=== PATIENT | female | born 1960 | race Caucasian/White ===

== ENCOUNTER → 2017-03-22 | Outpatient (CLI) | payer MEDICAID ==
--- NOTE | 2017-03-22 08:01 | XR ---
EXAMINATION TYPE: XR chest 2V DATE OF EXAM: 03/22/2017 7:26 AM COMPARISON: None HISTORY: 56-year-old female with cough and congestion TECHNIQUE: Frontal and lateral views FINDINGS: The cardiomediastinal silhouette, aorta, and pulmonary vasculature are within normal limits. Strandy atelectasis in the lower lungs. No consolidation or pleural effusion. IMPRESSION: Stranding bibasilar areas of atelectasis. Otherwise, no acute process seen.
== END | disposition home or self-care (01) ==
LOC: RADXRMAIN 07:12
PROVIDERS: ATTEND Family Medicine
DX: J98.11 Atelectasis (principal)
CPT/HCPCS: 71020

== ENCOUNTER → 2017-06-06 | Outpatient (CLI) | payer MEDICAID ==
[2017-06-06 11:13] LABS: Basophils % (A) 1 %; CH 31.8; CHCM 34.3; Eosinophils # (A) 0.1 k/uL (0-0.7); Eosinophils % (A) 2 %; HDW 2.04; Luc # (Auto) 0.29; Luc % (Auto) 3; Lymphocytes # (A) 2.7 k/uL (1.0-4.8); Lymphocytes % (A) 31 %; MCH 31.9 pg (25.0-35.0); MCHC 34.2 g/dL (31.0-37.0); MCV 93.2 fL (80.0-100.0); Mean Platelet Volume 6.8; Monocytes # (A) 0.5 k/uL (0-1.0); Monocytes % (A) 6 %; Neutrophils % (A) 57 %; RBC 4.39 m/uL (3.80-5.40); RDW 13.7 % (11.5-15.5); WBC 8.7 k/uL (3.8-10.6); WBC (Perox) 7.88
[2017-06-06 11:33] LABS: ALT 36 U/L (9-52); AST 31 U/L (14-36); Alkaline Phosphatase 92 U/L (38-126); Anion Gap 10 mmol/L; Blood Urea Nitrogen 14 mg/dL (7-17); Calcium 10.3 mg/dL (8.4-10.2); Carbon Dioxide 27 mmol/L (22-30); Chloride 92 mmol/L (98-107); Cholesterol 173 mg/dL (<200); Creatine Kinase 74 U/L (30-135); Glucose 102 mg/dL (74-99); HDL Cholesterol 64 mg/dL (40-60); Non-African American GFR(MDRD) >60 (>60 ml/min/1.73 sqM); Potassium 4.7 mmol/L (3.5-5.1); Sodium 129 mmol/L (137-145); Total Bilirubin 0.8 mg/dL (0.2-1.3); Triglycerides 91 mg/dL (<150)
[2017-06-06 13:58] LABS: Hemoglobin A1C 5.9 % (4.2-6.1)
== END | disposition home or self-care (01) ==
LOC: LABWHC1 10:48
PROVIDERS: ATTEND Family Medicine
DX: E11.65 Type 2 diabetes mellitus with hyperglycemia (principal); Z78.0 Asymptomatic menopausal state
CPT/HCPCS: 36415; 80053; 80061; 82550; 83036; 84439; 84443; 85025

== ENCOUNTER → 2018-01-17 | Outpatient (CLI) | payer MEDICAID ==
[2018-01-17 08:43] LABS: Basophils % (A) 1 %; Eosinophils # (A) 0.2 k/uL (0-0.7); Eosinophils % (A) 2 %; HCT 44.9 % (34.0-46.0); HGB 14.2 gm/dL (11.4-16.0); Lymphocytes # (A) 2.2 k/uL (1.0-4.8); Lymphocytes % (A) 26 %; MCH 30.8 pg (25.0-35.0); MCHC 31.8 g/dL (31.0-37.0); MCV 97.1 fL (80.0-100.0); Mean Platelet Volume 6.6; Monocytes # (A) 0.5 k/uL (0-1.0); Monocytes % (A) 6 %; Neutrophils # (A) 5.3 k/uL (1.3-7.7); Neutrophils % (A) 63 %; Platelet Count 330 k/uL (150-450); RBC 4.62 m/uL (3.80-5.40); RDW 13.4 % (11.5-15.5); WBC 8.4 k/uL (3.8-10.6)
[2018-01-17 09:12] LABS: ALT 37 U/L (9-52); AST 33 U/L (14-36); Albumin 4.3 g/dL (3.5-5.0); Alkaline Phosphatase 90 U/L (38-126); Anion Gap 13 mmol/L; Blood Urea Nitrogen 13 mg/dL (7-17); Calcium 10.2 mg/dL (8.4-10.2); Carbon Dioxide 29 mmol/L (22-30); Chloride 93 mmol/L (98-107); Cholesterol 185 mg/dL (<200); Glucose 104 mg/dL (74-99); HDL Cholesterol 58 mg/dL (40-60); LDL Cholesterol,Calculated 110 mg/dL (0-99); Potassium 4.6 mmol/L (3.5-5.1); Sodium 135 mmol/L (137-145); Total Bilirubin 0.5 mg/dL (0.2-1.3); Total Protein 7.7 g/dL (6.3-8.2); Triglycerides 86 mg/dL (<150)
[2018-01-17 20:31] LABS: Hemoglobin A1C 5.9 % (4.0-6.0)
== END | disposition home or self-care (01) ==
LOC: LABWHC1 08:12
PROVIDERS: ATTEND Family Medicine
DX: E11.9 Type 2 diabetes mellitus without complications (principal); E78.5 Hyperlipidemia, unspecified; I10 Essential (primary) hypertension
CPT/HCPCS: 36415; 80053; 80061; 82043; 82570; 83036; 85025

== ENCOUNTER → 2018-05-15 | Outpatient (CLI) | payer MEDICAID ==
[2018-05-15 10:44] LABS: Anion Gap 12 mmol/L; Blood Urea Nitrogen 14 mg/dL (7-17); Calcium 10.1 mg/dL (8.4-10.2); Carbon Dioxide 29 mmol/L (22-30); Chloride 96 mmol/L (98-107); Glucose 98 mg/dL (74-99); Potassium 4.5 mmol/L (3.5-5.1); Sodium 137 mmol/L (137-145)
[2018-05-15 17:29] LABS: Hemoglobin A1C 5.9 % (4.0-6.0)
== END | disposition home or self-care (01) ==
LOC: LABWHC1 10:02
PROVIDERS: ATTEND Family Medicine
DX: E11.9 Type 2 diabetes mellitus without complications (principal)
CPT/HCPCS: 36415; 80048; 83036

== ENCOUNTER → 2018-09-03 | Outpatient (CLI) | payer MEDICAID ==
[2018-09-03 12:23] LABS: Anion Gap 10 mmol/L; Blood Urea Nitrogen 15 mg/dL (7-17); Calcium 10.2 mg/dL (8.4-10.2); Carbon Dioxide 30 mmol/L (22-30); Chloride 95 mmol/L (98-107); Glucose 92 mg/dL (74-99); Potassium 4.6 mmol/L (3.5-5.1); Sodium 135 mmol/L (137-145)
[2018-09-03 19:14] LABS: Hemoglobin A1C 5.7 % (4.0-6.0)
== END | disposition home or self-care (01) ==
LOC: LABWHC1 10:26
PROVIDERS: ATTEND Family Medicine
DX: E11.9 Type 2 diabetes mellitus without complications (principal)
CPT/HCPCS: 36415; 80048; 83036

== ENCOUNTER → 2018-11-21 | Day surgery (SDC) | payer MEDICAID ==
[2018-11-19 08:42] VITALS: BMI 38.9
[~2018-11-21] MED LIST: LACTATED RINGERS 1,000 ML IV ONE; LACTATED RINGERS 1,000 ML IV SCH; LIDOCAINE 1% INJ 10MG/ML (20 ML MDV) ONE; PROPOFOL 10 MG/ML 20 ML VIAL IV ONE
--- NOTE | 2018-11-21 05:04 | P.GSHP ---
History of Present Illness H&P Date: 11/21/18 CHIEF COMPLAINT: GERD and colon screen HISTORY OF PRESENT ILLNESS: The patient is a 58-year-old female who presents with gastroesophageal reflux disease and need for colon screen. Upper and lower endoscopy were offered for further evaluation and management. PAST MEDICAL HISTORY: Please see list. PAST SURGICAL HISTORY: Please see list. MEDICATIONS: Please see list. ALLERGIES: Please see list. SOCIAL HISTORY: No illicit drug use FAMILY HISTORY: No reports of Crohn disease or ulcerative colitis. REVIEW OF ORGAN SYSTEMS: CONSTITUTIONAL: No reports of fevers or chills. GI: Denies any blood in stools or constipation. PHYSICAL EXAM: VITAL SIGNS: Stable GENERAL: Well-developed pleasant in no acute distress. HEENT: No scleral icterus. Extraocular movements grossly intact. Moist buccal mucosa. NECK: Supple without lymphadenopathy. CHEST: Unlabored respirations. Equal bilateral excursions. CARDIOVASCULAR: Regular rate and rhythm. Distal 2+ pulses. ABDOMEN: Soft, nondistended. MUSCULOSKELETAL: No clubbing, cyanosis, or edema. ASSESSMENT: 1. Gastroesophageal reflux disease 2. Colon screen. PLAN: 1. Recommend proceeding with an upper and lower endoscopy Past Medical History Past Medical History: Diabetes Mellitus, GI Bleed, Hypertension Additional Past Medical History / Comment(s): HX OF BLEEDING STOMACH ULCER, POLYPS, DIVERTICULITIS., DIET CONTROLLED DIABETES. History of Any Multi-Drug Resistant Organisms: None Reported Past Surgical History: Tubal Ligation Past Anesthesia/Blood Transfusion Reactions: No Reported Reaction Past Psychological History: No Psychological Hx Reported Smoking Status: Current every day smoker Past Alcohol Use History: Occasional Additional Past Alcohol Use History / Comment(s): smokes 1/2ppd. started smoking as teenager- smoking for approx 42 years. Past Drug Use History: None Reported - Past Family History Mother Family Medical History: No Reported History Medications and Allergies Home Medications Medication Instructions Recorded Confirmed Type Atorvastatin [Lipitor] 40 mg PO HS 05/13/14 11/19/18 History Hydrochlorothiazide [Hydrodiuril] 25 mg PO DAILY 05/13/14 11/19/18 History Lisinopril 30 mg PO BID 05/13/14 11/19/18 History Metoprolol Succinate [Toprol XL] 50 mg PO DAILY 05/13/14 11/19/18 History Omeprazole [PriLOSEC] [facility] 02/11/15 11/19/18 Rx Multivitamins, Thera [Multivitamin] 1 tab PO DAILY 08/15/16 11/19/18 History Allergies Allergy/AdvReac Type Severity Reaction Status Date / Time No Known Allergies Allergy Verified 11/19/18 08:24
[2018-11-21 07:12] VITALS: TEMP 98.1
[2018-11-21 07:18] LABS: Glucose,Whole Blood 106 mg/dL (75-99)
--- NOTE | 2018-11-21 07:42 | P.PCN ---
Date of Procedure: 11/21/18 Description of Procedure: PREOPERATIVE DIAGNOSIS: Gastroesophageal reflux disease. History of Díaz's esophagus POSTOPERATIVE DIAGNOSIS: Gastroesophageal reflux disease. History of Díaz's esophagus OPERATION: Esophagogastroduodenoscopy with biopsies along the distal esophagus SURGEON: Jaqueline Stringer MD ANESTHESIA: MAC. INDICATIONS: The patient is a 58-year-old female with history of Díaz's esophagus. Benefits and risks of the procedure were described. Informed consent was obtained. DESCRIPTION: The patient was brought into the endoscopy suite and laid in the left lateral decubitus position. An Olympus gastroscope was passed along the posterior oropharynx down to the distal esophagus where the squamocolumnar junction was encountered at 40 cm from the incisors. The stomach was entered and no bile reflux was found. Additional findings are listed below. Biopsies with cold forceps were obtained of the antrum. The first through third portion of the duodenum was examined and unremarkable. Retroflexion of the scope confirmed Hill grade 2 lower esophageal valve. The squamocolumnar junction demonstrated LA grade B erosive esophagitis. The stomach was desufflated. The patient tolerated the procedure well. FINDINGS: Squamocolumnar junction 40 cm from the incisors. Diaphragmatic hiatus at 40 cm. Hill grade 2 lower esophageal valve. LA grade B erosive esophagitis. No active duodenitis. No active gastritis Moderate improvement of previous Díaz's esophagus with biopsies obtained of the distal esophagus RECOMMENDATIONS: Upper endoscopy in 3 years, 2020
--- NOTE | 2018-11-21 08:01 | P.PCN ---
Date of Procedure: 11/21/18 Description of Procedure: PREOPERATIVE DIAGNOSIS: Personal history of colon polyps. Family history of high-risk colon polyps POSTOPERATIVE DIAGNOSIS: Personal history of colon polyps. Family history of high-risk colon polyps Multiple tubular adenomas throughout the colon. Sigmoid diverticulosis. OPERATION: Colonoscopy to the ileocecal valve and appendiceal orifice. Colonoscopy with multiple hot snare polypectomies Colonoscopy with ablation at distal ascending colon of polyp SURGEON: Jaqueline Stringer MD. ANESTHESIA: MAC. INDICATIONS: The patient is a 58-year-old female who presents for colonoscopy surveillance due to multiple high-risk colon polyps. Last colonoscopy within 5 years. Benefits and risks were described and informed consent was obtained. DESCRIPTION OF PROCEDURE: The patient had undergone Gatorade, MiraLAX and Dulcolax prep. She had been brought into the operating room and laid in the left lateral decubitus position. After adequate intravenous sedation, the rectum was examined with 2% lidocaine jelly. External hemorrhoids were encountered. The rectal tone was within normal limits. No lesions were palpated in the rectal vault. An Olympus colonoscope was advanced until the ileocecal valve and appendiceal orifice were clearly viewed. The prep was fair with visualization of the mucosal folds. The scope was removed with visualization of each mucosal fold. Scattered diverticulosis was encountered. Multiple colonic polyps were found and snare polypectomy. Focal colitis was found from diverticulosis at sigmoid colon. Retroflexion of the scope demonstrated grade 1 internal hemorrhoids without active bleeding or inflammation. The colon was desufflated. The patient had tolerated the procedure well. Withdrawal time was over 6 minutes. FINDINGS: Internal hemorrhoids, grade 1 External hemorrhoids, grade 2. No arteriovenous malformations. Removal of 2 polyps: - Snare polypectomy ascending colon 2, 5 mm and 4 mm tubulovillous adenoma polyp. Ablation of colon polyp at distal ascending colon Sigmoid diverticulosis with recent diverticulitis RECOMMENDATIONS: Given severity of tubular adenomas, recommend repeat colonoscopy 3 years, 2020. Plan - Discharge Summary New Discharge Prescriptions: No Action Lisinopril 30 mg PO BID Hydrochlorothiazide [Hydrodiuril] 25 mg PO DAILY Metoprolol Succinate [Toprol XL] 50 mg PO DAILY Atorvastatin [Lipitor] 40 mg PO HS Omeprazole [PriLOSEC] 40 mg PO -KT #90 cap Multivitamins, Thera [Multivitamin] 1 tab PO DAILY Discharge Medication List Atorvastatin [Lipitor] 40 mg PO HS 05/13/14 [History] Hydrochlorothiazide [Hydrodiuril] 25 mg PO DAILY 05/13/14 [History] Lisinopril 30 mg PO BID 05/13/14 [History] Metoprolol Succinate [Toprol XL] 50 mg PO DAILY 05/13/14 [History] Omeprazole [PriLOSEC] 40 mg PO -[facility]KFST #90 cap 02/11/15 [Rx] Multivitamins, Thera [Multivitamin] 1 tab PO DAILY 08/15/16 [History] Follow up Appointment(s)/Referral(s): Jaqueline Stringer MD [STAFF PHYSICIAN] - As Needed Patient Instructions/Handouts: Gastroesophageal Reflux Disease (DC) Activity/Diet/Wound Care/Special Instructions: Repeat upper and lower endoscopy, 3 years, 2020 Discharge Disposition: HOME SELF-CARE
[2018-11-21 08:13] VITALS: RESP 18
[2018-11-21 08:25] VITALS: BP 132/82; PULSE 66
== END | disposition home or self-care (01) ==
LOC: ORWHC2ENDO 06:54
PROVIDERS: ATTEND Surgery Plastic and Reconstructive Surgery
DX: Z12.11 Encounter for screening for malignant neoplasm of colon (principal); K29.50 Unspecified chronic gastritis without bleeding; K21.0 Gastro-esophageal reflux disease with esophagitis; K22.10 Ulcer of esophagus without bleeding; Q45.3 Other congenital malformations of pancreas and pancreatic duct; D12.2 Benign neoplasm of ascending colon; K57.30 Diverticulosis of large intestine without perforation or abscess without bleeding; K52.9 Noninfective gastroenteritis and colitis, unspecified; K64.4 Residual hemorrhoidal skin tags; K64.0 First degree hemorrhoids; Z86.010 Personal history of colon polyps; Z87.11 Personal history of peptic ulcer disease; Z87.19 Personal history of other diseases of the digestive system; Z83.71 Family history of colonic polyps; E11.9 Type 2 diabetes mellitus without complications; I10 Essential (primary) hypertension; F17.210 Nicotine dependence, cigarettes, uncomplicated; Z79.899 Other long term (current) drug therapy; Z98.51 Tubal ligation status
CPT/HCPCS: 88305; 45385; 43239; 45388; J2001; J2704

== ENCOUNTER → 2018-11-28 | Outpatient (CLI) | payer MEDICAID ==
--- NOTE | 2018-12-03 08:37 | MM ---
Reason for exam: screening (asymptomatic). Last mammogram was performed 5 years and 5 months ago. History: Patient is postmenopausal. Physical Findings: A clinical breast exam by your physician is recommended on an annual basis and results should be correlated with mammographic findings. MG Screening Mammo w CAD Bilateral CC and MLO view(s) were taken. Prior study comparison: July 09, 2013, bilateral digital screening mammo w/CAD. There are scattered fibroglandular densities. No suspicious abnormality. Stable left medial middle depth asymmetry. No significant changes when compared with prior studies. ASSESSMENT: Benign, BI-RAD 2 RECOMMENDATION: Routine screening mammogram of both breasts in 1 year.
== END | disposition home or self-care (01) ==
LOC: RADMAMWWP 10-17 15:35
PROVIDERS: ATTEND Family Medicine
DX: Z12.31 Encounter for screening mammogram for malignant neoplasm of breast (principal)
CPT/HCPCS: 77067

== ENCOUNTER 2018-12-19 08:16 | Observation (INO) | payer MEDICAID ==
--- NOTE | 2018-12-19 08:32 | ED ---
General Adult HPI - General Chief complaint: Back Pain/Injury Stated complaint: Back pain, Hypertensive Time Seen by Provider: 12/19/18 08:24 Source: patient, RN notes reviewed, old records reviewed Mode of arrival: ambulatory Limitations: no limitations - History of Present Illness Initial comments: 58-year-old female presents for evaluation of left-sided back pain. Pain began at 5 AM when the patient woke. Denies injury. Patient went to work as she normally would, she was having persistent dull ache in her left shoulder and back. She didn't take her blood pressure at work noted to be significantly elevated. She was urged to present to the emergency department for evaluation. Denies nausea vomiting. Denies central chest pain. She does report some mild anterior left-sided upper chest pain. This is also dull and achy. No diaphoresis. No abdominal pain. Patient has history of hypertension, diabetes , hypercholesterolemia and is a current smoker. No known history of CAD. - Related Data Home Medications Medication Instructions Recorded Confirmed Atorvastatin [Lipitor] 40 mg PO HS 05/13/14 12/19/18 Hydrochlorothiazide [Hydrodiuril] 25 mg PO DAILY 05/13/14 12/19/18 Lisinopril 30 mg PO BID 05/13/14 12/19/18 Metoprolol Succinate [Toprol XL] 50 mg PO DAILY 05/13/14 12/19/18 Multivitamins, Thera [Multivitamin] 1 tab PO DAILY 08/15/16 12/19/18 Previous Rx's Medication Instructions Recorded Omeprazole [PriLOSEC] 40 mg PO AC-BRKFST #90 cap 02/11/15 Allergies Allergy/AdvReac Type Severity Reaction Status Date / Time No Known Allergies Allergy Verified 12/19/18 08:54 Review of Systems ROS Statement: Those systems with pertinent positive or pertinent negative responses have been documented in the HPI. ROS Other: All systems not noted in ROS Statement are negative. Past Medical History Past Medical History: Diabetes Mellitus, GI Bleed, Hypertension Additional Past Medical History / Comment(s): HX OF BLEEDING STOMACH ULCER, POLYPS, DIVERTICULITIS., DIET CONTROLLED DIABETES. History of Any Multi-Drug Resistant Organisms: None Reported Past Surgical History: Tubal Ligation Past Anesthesia/Blood Transfusion Reactions: No Reported Reaction Past Psychological History: No Psychological Hx Reported Smoking Status: Current every day smoker Past Alcohol Use History: Occasional Past Drug Use History: None Reported - Past Family History Mother Family Medical History: No Reported History General Exam Limitations: no limitations General appearance: alert, in no apparent distress Head exam: Present: atraumatic, normocephalic Eye exam: Present: normal appearance, PERRL ENT exam: Present: normal exam Neck exam: Present: normal inspection. Absent: tenderness, meningismus Respiratory exam: Present: normal lung sounds bilaterally. Absent: respiratory distress, wheezes Cardiovascular Exam: Present: regular rate, normal rhythm GI/Abdominal exam: Present: soft. Absent: distended, tenderness Extremities exam: Present: normal inspection, normal capillary refill, other ( Bilateral radial pulses 2+). Absent: pedal edema Back exam: Present: normal inspection. Absent: tenderness, muscle spasm Neurological exam: Present: alert, oriented X3, CN II-XII intact. Absent: motor sensory deficit Psychiatric exam: Present: normal affect, normal mood Skin exam: Present: warm, dry. Absent: cyanosis, diaphoretic Course Vital Signs 12/19/18 12/19/18 12/19/18 08:18 08:45 09:15 Temperature 98 F Pulse Rate 74 70 72 Respiratory 20 18 18 Rate Blood Pressure 177/91 154/80 159/74 O2 Sat by Pulse 97 96 96 Oximetry EKG Findings - EKG Comments: EKG Findings:: EKG: Normal sinus rhythm, rate of 77 WA interval 144, QRS duration 86, QTC 425, no ST segment elevation, poor baseline in the inferior leads but no definitive signs of ischemia. Medical Decision Making - Medical Decision Making 58-year-old female presenting for evaluation of atraumatic left shoulder pain and back pain. Dull and aching in nature. Patient has significant risk factors. Including hypertension, hypercholesterolemia, diabetes, and there is a current smoker. Workup in the emergency department reveals chest x-ray which is negative for acute cardiopulmonary disease, there is some mild cardiomegaly. CBC, CMP significant only for hypomagnesemia which is replaced. Initial troponin negative. Patient will be kept in observation for repeat cardiac enzymes, telemetry, and cardiology consultation, case is discussed with admitting physician Dr. Pastrana - Lab Data Result diagrams: 12/19/18 08:44 12/19/18 08:44 Lab Results 12/19/18 12/19/18 12/19/18 Range/Units 08:44 08:44 08:44 WBC 10.3 (3.8-10.6) k/uL RBC 4.50 (3.80-5.40) m/uL Hgb 14.0 (11.4-16.0) gm/dL Hct 43.0 (34.0-46.0) % MCV 95.6 (80.0-100.0) fL MCH 31.2 (25.0-35.0) pg MCHC 32.6 (31.0-37.0) g/dL RDW 14.3 (11.5-15.5) % Plt Count 340 (150-450) k/uL Neutrophils % 72 % Lymphocytes % 19 % Monocytes % 5 % Eosinophils % 2 % Basophils % 1 % Neutrophils # 7.4 (1.3-7.7) k/uL Lymphocytes # 1.9 (1.0-4.8) k/uL Monocytes # 0.5 (0-1.0) k/uL Eosinophils # 0.2 (0-0.7) k/uL Basophils # 0.1 (0-0.2) k/uL PT (9.0-12.0) sec INR (<1.2) APTT (22.0-30.0) sec Sodium 135 L (137-145) mmol/L Potassium 4.3 (3.5-5.1) mmol/L Chloride 100 (98-107) mmol/L Carbon Dioxide 27 (22-30) mmol/L Anion Gap 8 mmol/L BUN 12 (7-17) mg/dL Creatinine 0.63 (0.52-1.04) mg/dL Est GFR (CKD-EPI)AfAm >90 (>60 ml/min/1.73 sqM) Est GFR (CKD-EPI)NonAf >90 (>60 ml/min/1.73 sqM) Glucose 113 H (74-99) mg/dL Calcium 9.9 (8.4-10.2) mg/dL Magnesium 1.2 L (1.6-2.3) mg/dL Total Bilirubin 0.7 (0.2-1.3) mg/dL AST 34 (14-36) U/L ALT 39 (9-52) U/L Alkaline Phosphatase 105 (38-126) U/L Total Creatine Kinase 50 (30-135) U/L CK-MB (CK-2) 1.1 (0.0-2.4) ng/mL CK-MB (CK-2) Rel Index 2.2 Troponin I <0.012 (0.000-0.034) ng/mL Total Protein 7.7 (6.3-8.2) g/dL Albumin 4.2 (3.5-5.0) g/dL 12/19/18 Range/Units 08:44 WBC (3.8-10.6) k/uL RBC (3.80-5.40) m/uL Hgb (11.4-16.0) gm/dL Hct (34.0-46.0) % MCV (80.0-100.0) fL MCH (25.0-35.0) pg MCHC (31.0-37.0) g/dL RDW (11.5-15.5) % Plt Count (150-450) k/uL Neutrophils % % Lymphocytes % % Monocytes % % Eosinophils % % Basophils % % Neutrophils # (1.3-7.7) k/uL Lymphocytes # (1.0-4.8) k/uL Monocytes # (0-1.0) k/uL Eosinophils # (0-0.7) k/uL Basophils # (0-0.2) k/uL PT 10.7 (9.0-12.0) sec INR 1.0 (<1.2) APTT 22.8 (22.0-30.0) sec Sodium (137-145) mmol/L Potassium (3.5-5.1) mmol/L Chloride (98-107) mmol/L Carbon Dioxide (22-30) mmol/L Anion Gap mmol/L BUN (7-17) mg/dL Creatinine (0.52-1.04) mg/dL Est GFR (CKD-EPI)AfAm (>60 ml/min/1.73 sqM) Est GFR (CKD-EPI)NonAf (>60 ml/min/1.73 sqM) Glucose (74-99) mg/dL Calcium (8.4-10.2) mg/dL Magnesium (1.6-2.3) mg/dL Total Bilirubin (0.2-1.3) mg/dL AST (14-36) U/L ALT (9-52) U/L Alkaline Phosphatase (38-126) U/L Total Creatine Kinase (30-135) U/L CK-MB (CK-2) (0.0-2.4) ng/mL CK-MB (CK-2) Rel Index Troponin I (0.000-0.034) ng/mL Total Protein (6.3-8.2) g/dL Albumin (3.5-5.0) g/dL Disposition Clinical Impression: Chest pain Disposition: [facility]MITT[facility] IP [facility] Condition: Stable Is patient prescribed a controlled substance at d/c from ED?: No Referrals: Rhonda Ely MD [Primary Care Provider] - 1-2 days Decision to Admit Reason: Admit from EC Decision Date: 12/19/18 Decision Time: 10:18
[2018-12-19 08:55] LABS: Basophils # (A) 0.1 k/uL (0-0.2); Basophils % (A) 1 %; Eosinophils # (A) 0.2 k/uL (0-0.7); Eosinophils % (A) 2 %; Lymphocytes # (A) 1.9 k/uL (1.0-4.8); Lymphocytes % (A) 19 %; MCH 31.2 pg (25.0-35.0); MCHC 32.6 g/dL (31.0-37.0); MCV 95.6 fL (80.0-100.0); Mean Platelet Volume 6.8; Monocytes # (A) 0.5 k/uL (0-1.0); Monocytes % (A) 5 %; Neutrophils # (A) 7.4 k/uL (1.3-7.7); Neutrophils % (A) 72 %; Platelet Count 340 k/uL (150-450); RDW 14.3 % (11.5-15.5); WBC 10.3 k/uL (3.8-10.6)
[2018-12-19 09:05] LABS: ALT 39 U/L (9-52); AST 34 U/L (14-36); Albumin 4.2 g/dL (3.5-5.0); Alkaline Phosphatase 105 U/L (38-126); Anion Gap 8 mmol/L; Blood Urea Nitrogen 12 mg/dL (7-17); Calcium 9.9 mg/dL (8.4-10.2); Carbon Dioxide 27 mmol/L (22-30); Chloride 100 mmol/L (98-107); Glucose 113 mg/dL (74-99); Magnesium 1.2 mg/dL (1.6-2.3); Partial Thromboplastin Time 22.8 sec (22.0-30.0); Potassium 4.3 mmol/L (3.5-5.1); Prothrombin Time 10.7 sec (9.0-12.0); Sodium 135 mmol/L (137-145); Total Bilirubin 0.7 mg/dL (0.2-1.3); Total Protein 7.7 g/dL (6.3-8.2)
--- NOTE | 2018-12-19 09:13 | XR ---
EXAMINATION TYPE: XR chest 2V DATE OF EXAM: 12/19/2018 COMPARISON: 03/22/2017 INDICATION: Chest pain TECHNIQUE: Frontal and lateral views of the chest are obtained. FINDINGS: The heart size is prominent. The pulmonary vasculature is normal. The lungs are clear. EKG leads overlie the chest. IMPRESSION: 1. No acute pulmonary process.
[2018-12-19 09:17] LABS: Creatine Kinase 50 U/L (30-135)
[2018-12-19 09:29] LABS: Creatine Kinase MB 1.1 ng/mL (0.0-2.4); Troponin I <0.012 ng/mL (0.000-0.034)
[2018-12-19] MEDS ORDERED: ASPIRIN 325 MG TAB PO STA (09:39)
[2018-12-19] MEDS: MAGNESIUM SULFATE-D5W PMX 1 GM in DEXTROSE/WATER 1 100ML.BAG IVPB SCH ×2 (10:02→11:56)
[2018-12-19] MEDS ORDERED: NALOXONE 0.4 MG/ML 1 ML VIAL IV PRN (10:14)
[2018-12-19] MEDS ORDERED: ONDANSETRON 4 MG/2 ML VIAL IVP PRN (10:14)
[2018-12-19] MEDS ORDERED: MORPHINE SULFATE 4 MG/ML SYRINGE IV PRN (10:14)
[2018-12-19] MEDS ORDERED: ACETAMINOPHEN TAB 325 MG TAB PO PRN (10:14)
[2018-12-19] MEDS ORDERED: NITROGLYCERIN SL TABS 0.4 MG TAB SUBLINGUAL PRN (10:15)
--- NOTE | 2018-12-19 11:21 | P.HPIM ---
History of Present Illness H&P Date: 12/19/18 The patient is a 58-year-old female with a PMH of hypertension, diabetes, hyperlipidemia, and active smoker who presented to the ED with left-sided chest pain. The patient woke up this morning at 5 AM with left sided back and shoulder pain, 6 out of 10, nonradiating, aching in nature. The patient came to work and began having left upper sided chest pain, 8 out of 10, also achy in nature, constant, and nonpleuritic. The patient denied diaphoresis, nausea, vomiting, shortness of breath, or palpitations. She denied ever having such symptoms in the past. While at work, she checked her blood pressure which was elevated and she subsequently came to the ED. At the time of the interview, she endorsed 4 out of 10 left upper sided, aching chest pain with no radiation. In the ED the patient had a comprehensive workup with a chest x-ray unremarkable , troponins <0.012, WBC count 10.3, with EKG showing normal sinus rhythm at 77 bpm. Review of Systems Pertinent positives and negatives as discussed in HPI, a complete review of systems was performed and all other systems are negative. Past Medical History Past Medical History: Diabetes Mellitus, GI Bleed, Hypertension Additional Past Medical History / Comment(s): HX OF BLEEDING STOMACH ULCER, POLYPS, DIVERTICULITIS., DIET CONTROLLED DIABETES. History of Any Multi-Drug Resistant Organisms: None Reported Past Surgical History: Tubal Ligation Past Anesthesia/Blood Transfusion Reactions: No Reported Reaction Past Psychological History: No Psychological Hx Reported Smoking Status: Current every day smoker Past Alcohol Use History: Occasional Past Drug Use History: None Reported - Past Family History Mother Family Medical History: No Reported History Medications and Allergies Home Medications Medication Instructions Recorded Confirmed Type Atorvastatin [Lipitor] 40 mg PO HS 05/13/14 12/19/18 History Hydrochlorothiazide [Hydrodiuril] 25 mg PO DAILY 05/13/14 12/19/18 History Lisinopril 30 mg PO BID 05/13/14 12/19/18 History Metoprolol Succinate [Toprol XL] 50 mg PO DAILY 05/13/14 12/19/18 History Omeprazole [PriLOSEC] 40 mg PO -BRKFST #90 cap 02/11/15 12/19/18 Rx Multivitamins, Thera [Multivitamin] 1 tab PO DAILY 08/15/16 12/19/18 History Allergies Allergy/AdvReac Type Severity Reaction Status Date / Time No Known Allergies Allergy Verified 12/19/18 08:54 Physical Exam Vitals: Vital Signs Temp Pulse Resp BP Pulse Ox 12/19/18 10:38 98.1 F 75 18 154/78 98 12/19/18 10:30 74 18 154/78 96 12/19/18 10:00 85 18 151/70 96 12/19/18 09:30 75 18 159/74 96 12/19/18 09:15 72 18 159/74 96 12/19/18 08:45 70 18 154/80 96 12/19/18 08:18 98 F 74 20 177/91 97 Intake and Output 12/18/18 12/19/18 12/19/18 22:59 06:59 14:59 Other: Weight 99.79 kg General: [non toxic], [no distress], [appears at stated age], [obese] Derm: [no unusual rashes/lesions] [no unusual ecchymoses], [warm], [dry] Head: [atraumatic], [normocephalic], [symmetric] Eyes: [EOMI], [no lid lag], [anicteric sclera], [pupils equal round reactive to light] ENT: [Nose and ears atraumatic], [no thrush], [no pharyngeal erythema] Neck: [No thyromegaly], [no cervical lymphadenopathy], [trachea midline], [ supple] Mouth: [no lip lesion], [mucus membranes moist] Cardiovascular: [S1S2 reg], [no murmur], [positive posterior tibial pulse bilateral], [no edema], [capillary refill less than 2 seconds] Lungs: [CTA bilateral], [no rhonchi, no rales] , [no accessory muscle use] Abdominal: [soft], [ nontender to palpation], [no guarding], [no appreciable organomegaly], [normal bowel sounds] Ext: [no gross muscle atrophy], [muscle strength 5 out of 5 in all 4 extremities grossly], [no contractures], full range of motion of left shoulder, no back or shoulder tenderness on palpation Neuro: [ CN II-XI grossly intact], [light touch intact all 4 extremities], [ finger to nose within normal limits], Psych: [Alert], [oriented], [appropriate affect] Results CBC & Chem 7: 12/19/18 08:44 12/19/18 08:44 Labs: Abnormal Lab Results - Last 24 Hours (Table) 12/19/18 Range/Units 08:44 Sodium 135 L (137-145) mmol/L Glucose 113 H (74-99) mg/dL Magnesium 1.2 L (1.6-2.3) mg/dL Assessment and Plan Plan: Chest pain, rule out ACS -Admitted under observation -Cardiology consult -Trend troponins and EKG -Continue with aspirin, plavix, statin -Cardiac monitoring Hypomagnesemia -Will replace and monitor Hypertension -Continue with lisinopril, HCTZ, metoprolol Diabetes mellitus -Sliding scale with fingersticks Hyperlipidemia -Continue with Lipitor DVT//GI prophylaxis -Heparin -Protonix The patient is placed under observation with an anticipated less than 2 midnight stay for evaluation of chest pain. CODE STATUS: Full code Discussed with: Patient Anticipated discharge date: 12/20/[address]: Home A total of 50 minutes was spent on the care of this complex patient more than 50 % of the time was spent in counseling and care coordination.
[2018-12-19 11:27] VITALS: BMI 38.9
[2018-12-19] MEDS ORDERED: amLODIPine 5 MG TAB PO SCH (11:30)
[2018-12-19 11:41] LABS: Glucose,Whole Blood 98 mg/dL (75-99)
[2018-12-19] MEDS ORDERED: INSULIN ASPART 100 UNIT/ML 1 ML 10 ML VIAL SQ SCH (12:30)
--- NOTE | 2018-12-19 13:03 | P.CRDCN ---
History of Present Illness History of present illness: This is a pleasant 58-year-old female past medical history significant for hypertension, dyslipidemia, chronic nicotine dependence and obesity. She denies history of coronary artery disease and has never seen a patrol officer for any reason. We have been asked to see her in consultation for chest pain. She states she woke up this morning with a dull achy pain in the left upper back, scapular region with some radiation into the left shoulder. There was no radiation down the arm, into the neck or jaw. She denies shortness of breath, dizziness, palpitations, nausea, vomiting or diaphoresis. The achy sensation was mildly worse with movement of the arm and is still present at the time of my exam. She also denies PND or orthopnea. She was at work this morning and had her blood pressure checked by a nurse and it came to be elevated at 180/ 90ish per the patient. She states she is compliant with all of her medications daily. On arrival pressure was 177/91 heart rate 74. EKG reveals sinus mechanism with no acute ST or T-wave abnormalities. Chest xray negative for an acute cardiopulmonary process. Laboratory data reviewed, WBC 10.3, hgb 14, plt 340, sodium 135, potassium 4.3, creatinine 0.63, magnesium 1.2, cardiac enzymes negative x1. Current cardiac medications include atorvastatin 40 mg daily, hydrochlorothiazide 25 mg daily, lisinopril 20 mg BID and toprol 25 mg BID. No old cardiac records to review. At the time of my exam: CONSTITUTIONAL: Denies fever. Denies chills. EYES: Denies blurred vision. Denies vision changes. Denies eye pain. EARS, NOSE, MOUTH & THROAT: Denies headache. Denies sore throat. Denies ear pain. CARDIOVASCULAR: Denies chest pain. Denies shortness of breath. Denies orthopnea. Denies PND. Denies palpitations. RESPIRATORY: Denies cough. GASTROINTESTINAL: Denies abdominal pain. Denies diarrhea. Denies constipation. Denies nausea. Denies vomiting. MUSCULOSKELETAL: Complains of left upper back/scapular and shoulder ache. INTEGUMENTARY: Denies pruitis. Denies rash. NEUROLOGIC: Denies numbness. Denies tingling. Denies weakness. PSYCHIATRIC: Denies anxiety. Denies depression. ENDOCRINE: Denies fatigue. Denies weight change. Denies polydipsia. Denies polyurina. GENITOURINARY: Denies burning, hematuria or urgency with micturation. HEMATOLOGIC: Denies history of anemia. Denies bleeding. Blood pressure 151/70 heart rate 85 afebrile maintaining oxygen saturation on room air GENERAL: This is a 58-year-old female in no apparent distress at the time of my examination. Obese. HEENT: Head is atraumatic, normocephalic. Pupils are equal, round. Sclerae anicteric. Conjunctivae are clear. Mucous membranes of the mouth are moist. Neck is supple. There is no jugular venous distention. No carotid bruit is heard. LUNGS: Clear to auscultation no wheezes, rales or rhonchi. No chest wall tenderness is noted on palpation or with deep breathing. HEART: Regular rate and rhythm without murmurs, rubs or gallops. S1 and S2 heard. ABDOMEN: Soft, nontender. Bowel sounds are heard. No organomegaly noted. EXTREMITIES: No evidence of peripheral edema and no calf tenderness noted. VASCULAR: Radial and dorsalis pedis pulses palpated, no evidence of clubbing. NEUROLOGIC: Patient is awake, alert and oriented x3. ASSESSMENT Chest pain, atypical. Hypertension, uncontrolled Dyslipidemia Chronic nicotine dependence Obesity, BMI 39 PLAN Continue to obtain serial cardiac enzymes to rule out an acute coronary event. Obtain 2D echocardiogram and doppler study to assess cardiac structure and function. Add small dose of amlodipine 5 mg daily. Continue lisinopril, hydrochlorothiazide, toprol and atorvastatin at home doses. If enzymes are normal she can be discharged home. Outpatient stress test to be scheduled in the next week and follow up with Dr. Mcintosh in 2 weeks. Smoking cessation recommended. Thank you kindly for this consultation. Nurse Practitioner note has been reviewed, I agree with a documented findings and plan of care. Patient was seen and examined. Past Medical History Past Medical History: Diabetes Mellitus, GI Bleed, Hypertension Additional Past Medical History / Comment(s): HX OF BLEEDING STOMACH ULCER, POLYPS, DIVERTICULITIS., DIET CONTROLLED DIABETES. History of Any Multi-Drug Resistant Organisms: None Reported Past Surgical History: Tubal Ligation Past Anesthesia/Blood Transfusion Reactions: No Reported Reaction Past Psychological History: No Psychological Hx Reported Smoking Status: Current every day smoker Past Alcohol Use History: Occasional Past Drug Use History: None Reported - Past Family History Mother Family Medical History: No Reported History Father Family Medical History: Myocardial Infarction ([place]) Medications and Allergies Home Medications Medication Instructions Recorded Confirmed Type Atorvastatin [Lipitor] 40 mg PO HS 05/13/14 12/19/18 History Hydrochlorothiazide [Hydrodiuril] 25 mg PO DAILY 05/13/14 12/19/18 History Lisinopril 20 mg PO BID 05/13/14 12/19/18 History Metoprolol Succinate [Toprol XL] 25 mg PO BID 05/13/14 12/19/18 History Multivitamins, Thera [Multivitamin] 1 tab PO HS 08/15/16 12/19/18 History Omeprazole [PriLOSEC] 40 mg PO AC-BRKFST 12/19/18 12/19/18 History Allergies Allergy/AdvReac Type Severity Reaction Status Date / Time No Known Allergies Allergy Verified 12/19/18 08:54 Physical Exam Vitals: Vital Signs Temp Pulse Pulse Resp BP BP Pulse Ox 12/19/18 11:05 98.1 F 70 16 150/80 94 L 12/19/18 10:38 98.1 F 75 18 154/78 98 12/19/18 10:30 74 18 154/78 96 12/19/18 10:00 85 18 151/70 96 12/19/18 09:30 75 18 159/74 96 12/19/18 09:15 72 18 159/74 96 12/19/18 08:45 70 18 154/80 96 12/19/18 08:18 98 F 74 20 177/91 97 Intake and Output 12/18/18 12/19/18 12/19/18 22:59 06:59 14:59 Other: Weight 102.2 kg Results 12/19/18 08:44 12/19/18 08:44 Cardiac Enzymes 12/19/18 12/19/18 Range/Units 08:44 08:44 AST 34 (14-36) U/L CK-MB (CK-2) 1.1 (0.0-2.4) ng/mL Troponin I <0.012 (0.000-0.034) ng/mL Coagulation 12/19/18 Range/Units 08:44 PT 10.7 (9.0-12.0) sec APTT 22.8 (22.0-30.0) sec CBC 12/19/18 Range/Units 08:44 WBC 10.3 (3.8-10.6) k/uL RBC 4.50 (3.80-5.40) m/uL Hgb 14.0 (11.4-16.0) gm/dL Hct 43.0 (34.0-46.0) % Plt Count 340 (150-450) k/uL Comprehensive Metabolic Panel 12/19/18 Range/Units 08:44 Sodium 135 L (137-145) mmol/L Potassium 4.3 (3.5-5.1) mmol/L Chloride 100 (98-107) mmol/L Carbon Dioxide 27 (22-30) mmol/L BUN 12 (7-17) mg/dL Creatinine 0.63 (0.52-1.04) mg/dL Glucose 113 H (74-99) mg/dL Calcium 9.9 (8.4-10.2) mg/dL AST 34 (14-36) U/L ALT 39 (9-52) U/L Alkaline Phosphatase 105 (38-126) U/L Total Protein 7.7 (6.3-8.2) g/dL Albumin 4.2 (3.5-5.0) g/dL Current Medications Generic Name Dose Route Start Last Admin Trade Name Freq PRN Reason Stop Dose Admin Acetaminophen 650 mg 12/19/18 10:14 Tylenol Tab PO Q6HR PRN Mild Pain or Fever > 100.5 Amlodipine Besylate 5 mg 12/19/18 11:30 Norvasc PO DAILY [facility] Atorvastatin Calcium 40 mg 12/19/18 21:00 Lipitor PO HS [facility] Hydrochlorothiazide 25 mg 12/20/18 09:00 Hydrodiuril PO DAILY [facility] Magnesium Sulfate/Dextrose 1 100 mls @ 100 mls/hr 12/19/18 09:45 12/19/18 10: 02 gm/ IV Solution IVPB 12/19/18 11:44 100 mls/hr Q1H [facility] Administration Insulin Aspart 0 unit 12/19/18 12:30 Novolog SQ AC-TID [facility] Protocol Lisinopril 20 mg 12/19/18 21:00 Zestril PO BID [facility] Morphine Sulfate 4 mg 12/19/18 10:14 Morphine Sulfate (Inj) IV Q4HR PRN Severe Pain Naloxone HCl 0.2 mg 12/19/18 10:14 Narcan IV Q2M PRN Opioid Reversal Nitroglycerin 0.4 mg 12/19/18 10:15 Nitrostat SUBLINGUAL Q5M PRN Chest Pain Ondansetron HCl 4 mg 12/19/18 10:14 Zofran IVP Q8HR PRN Nausea And Vomiting Intake and Output 12/18/18 12/19/18 12/19/18 22:59 06:59 14:59 Other: Weight 102.2 kg Patient Weight 12/20/18 06:59 Weight 102.2 kg 12/19/18 08:44 12/19/18 08:44
[2018-12-19 15:40] VITALS: BP 138/77; PULSE 76; RESP 18; TEMP 98.3
[2018-12-19 15:40] LABS: Creatine Kinase 60 U/L (30-135)
[2018-12-19 15:53] LABS: Troponin I <0.012 ng/mL (0.000-0.034)
[2018-12-19 16:57] LABS: Glucose,Whole Blood 141 mg/dL (75-99)
[2018-12-19] MEDS ORDERED: ATORVASTATIN 40 MG TAB PO SCH (21:00)
[2018-12-19] MEDS ORDERED: LISINOPRIL 20 MG TAB PO SCH (21:00)
[2018-12-20] MEDS ORDERED: HYDROCHLOROTHIAZIDE 25 MG TAB PO SCH (09:00)
--- NOTE | 2018-12-20 14:39 | ECHOF ---
Referral Reason:cp MEASUREMENTS -------- HEIGHT: 160.0 cm WEIGHT: 102.1 kg BP: 150/80 RVIDd: 2.4 cm (< 3.3) IVSd: 1.0 cm (0.6 - 1.1) LVIDd: 3.8 cm (3.9 - 5.3) LVPWd: 1.0 cm (0.6 - 1.1) IVSs: 1.4 cm LVIDs: 2.0 cm LVPWs: 1.3 cm LAESV Index (A-L): 28.81 ml/m Ao Diam: 3.4 cm (2.0 - 3.7) AV Cusp: 1.6 cm (1.5 - 2.6) LA Diam: 4.4 cm (2.7 - 3.8) EPSS: 0.2 cm MV E Juan: 0.82 m/s MV DecT: 243 ms MV A Juan: 0.83 m/s MV E/A Ratio: 0.99 RAP: 5.00 mmHg RVSP: 21.09 mmHg MV EF SLOPE: 71.29 mm/s (70 - 150) MV EXCURSION: 1.82 cm (> 18.000) FINDINGS -------- Sinus rhythm. This was a technically adequate study. The left ventricular size is normal. Left ventricular wall thickness is normal. Overall left vent ricular systolic function is normal with, an EF between 60 - 65 %. The right ventricle is normal in size and function. LA is midly dilated 29-33ml/m2. The right atrium is normal in size. There is mild aortic valve sclerosis. There is no evidence of aortic regurgitation. There is no e vidence of aortic stenosis. The mitral valve leaflets are mildly thickened. There is trace to mild mitral regurgitation. Trace tricuspid regurgitation present. Right ventricular systolic pressure is normal at < 35 mmHg. There is no evidence of pulmonary hypertension. Trace/mild (physiologic) pulmonic regurgitation. The aortic root size is normal. Normal inferior vena cava with normal inspiratory collapse consistent with estimated right atrial pre ssure of 5 mmHg. There is no pericardial effusion. CONCLUSIONS -------- 1. Sinus rhythm. 2. This was a technically adequate study. 3. The left ventricular size is normal. 4. Left ventricular wall thickness is normal. 5. Overall left ventricular systolic function is normal with, an EF between 60 - 65 %. 6. LA is midly dilated 29-33ml/m2. 7. There is mild aortic valve sclerosis. 8. The mitral valve leaflets are mildly thickened. 9. There is trace to mild mitral regurgitation. 10. Trace tricuspid regurgitation present. 11. Right ventricular systolic pressure is normal at < 35 mmHg. 12. There is no evidence of pulmonary hypertension. 13. Trace/mild (physiologic) pulmonic regurgitation. 14. The aortic root size is normal. 15. There is no pericardial effusion. REGIONAL OPERATIONS DIRECTOR: Wan Daigle RDCS
== END 2018-12-19 17:15 | disposition home or self-care (01) ==
LOC: EC 08:16 → 1SOBS 10:14
PROVIDERS: ADMIT Internal Medicine; ATTEND Internal Medicine
DX: R07.89 Other chest pain (principal); M25.512 Pain in left shoulder; M54.9 Dorsalgia, unspecified; M54.6 Pain in thoracic spine; E83.42 Hypomagnesemia; I10 Essential (primary) hypertension; E78.5 Hyperlipidemia, unspecified; E11.9 Type 2 diabetes mellitus without complications; F17.200 Nicotine dependence, unspecified, uncomplicated; Z87.19 Personal history of other diseases of the digestive system; Z87.11 Personal history of peptic ulcer disease; Z86.010 Personal history of colon polyps; Z79.899 Other long term (current) drug therapy; E66.9 Obesity, unspecified; Z68.39 Body mass index [BMI] 39.0-39.9, adult; Z82.49 Family history of ischemic heart disease and other diseases of the circulatory system; E78.00 Pure hypercholesterolemia, unspecified
CPT/HCPCS: 96366; 96365; 99285; 36415; 93005; 93306; 80053; 82550; 82553; 83735; 84484; 85025; 85610; 85730; 71046; G0378; J3475

== ENCOUNTER → 2020-01-27 | Outpatient (CLI) | payer MEDICAID ==
[2020-01-27 13:01] LABS: Basophils % (A) 0 %; Eosinophils # (A) 0.2 k/uL (0-0.7); Eosinophils % (A) 3 %; HCT 43.8 % (34.0-46.0); HGB 14.4 gm/dL (11.4-16.0); Lymphocytes # (A) 2.5 k/uL (1.0-4.8); Lymphocytes % (A) 32 %; MCH 31.4 pg (25.0-35.0); MCHC 32.8 g/dL (31.0-37.0); MCV 95.8 fL (80.0-100.0); Mean Platelet Volume 7.6; Monocytes # (A) 0.5 k/uL (0-1.0); Monocytes % (A) 6 %; Neutrophils # (A) 4.4 k/uL (1.3-7.7); Neutrophils % (A) 56 %; Platelet Count 333 k/uL (150-450); RBC 4.58 m/uL (3.80-5.40); RDW 13.3 % (11.5-15.5); WBC 7.9 k/uL (3.8-10.6)
[2020-01-27 16:42] LABS: % Iron Saturation 13.78 (12.00-45.00); Anion Gap 5.4 mmol/L (4.00-12.00); BUN/Creat Ratio 14.44 Ratio (12.00-20.00); Calcium 10.1 mg/dL (8.7-10.3); Carbon Dioxide 31.6 mmol/L (21.6-31.8); Chol/HDL Ratio 3.79; LDL Cholesterol,Calculated 112.2 mg/dL (0.0-131.0); Potassium 4.1 mmol/L (3.5-5.5); VLDL Calculation 32.8 mg/dL (5.00-40.00)
== END | disposition home or self-care (01) ==
LOC: LABWHC1 09:12
PROVIDERS: ATTEND Nurse Practitioner Adult Health
DX: E66.9 Obesity, unspecified (principal); I10 Essential (primary) hypertension; F33.9 Major depressive disorder, recurrent, unspecified
CPT/HCPCS: 36415; 80048; 80061; 82306; 82607; 83540; 83550; 84443; 85025

== ENCOUNTER 2021-07-17 05:45 | Emergency (ER) | payer MEDICAID ==
[2021-07-17 05:50] VITALS: BP 139/83; PULSE 83; RESP 22; TEMP 98.3
[2021-07-17] MEDS ORDERED: methylPREDNISolone SOD SUCCI 125 MG/2 ML VIAL IV STA (06:13)
[2021-07-17] MEDS ORDERED: diphenhydrAMINE 50 MG/ML 1 ML VIAL IVP STA (06:13)
[2021-07-17] MEDS ORDERED: FAMOTIDINE 20 MG/2 ML VIAL IV STA (06:13)
--- NOTE | 2021-07-17 06:18 | ED ---
Allergic Reaction HPI - General Chief complaint: Allergic Reaction Stated complaint: Tongue swelling Time Seen by Provider: 07/17/21 06:00 Source: patient, family, RN notes reviewed Mode of arrival: ambulatory Limitations: no limitations - History of Present Illness Initial Comments: This a 61-year-old female presents emergency Department chief complaint of ALLERGIC reaction. Patient states that she took some NyQuil 4 AM states shortly after she started having some swelling of her tongue. She states her tonsils are swollen right side denies any swelling sensation of her throat itself denies any rashes. Patient states she's taken NyQuil in the past with no symptoms like this. Patient is on lisinopril but states that she's been on for many years. Denies any other complaints. She did take Benadryl prior arrival. - Related Data Home Medications Medication Instructions Recorded Confirmed Atorvastatin [Lipitor] 40 mg PO HS 05/13/14 07/17/21 hydroCHLOROthiazide [Hydrodiuril] 25 mg PO DAILY 05/13/14 07/17/21 lisinopriL 30 mg PO BID 05/13/14 07/17/21 Multivitamins, Thera [Multivitamin 1 tab PO DAILY 08/15/16 07/17/21 (formulary)] Omeprazole [PriLOSEC] 40 mg PO AC-BRKFST 12/19/18 07/17/21 Metoprolol Succinate (ER) [Toprol 100 mg PO HS 07/17/21 07/17/21 Xl] amLODIPine [Norvasc] 5 mg PO HS 07/17/21 07/17/21 buPROPion HCL [Wellbutrin XL] 300 mg PO DAILY 07/17/21 07/17/21 Previous Rx's Medication Instructions Recorded predniSONE 50 mg PO DAILY #3 tab 07/17/21 Allergies Allergy/AdvReac Type Severity Reaction Status Date / Time No Known Allergies Allergy Verified 07/17/21 07:10 Review of Systems ROS Statement: Those systems with pertinent positive or pertinent negative responses have been documented in the HPI. ROS Other: All systems not noted in ROS Statement are negative. Past Medical History Past Medical History: Diabetes Mellitus, GI Bleed, Hypertension Additional Past Medical History / Comment(s): HX OF BLEEDING STOMACH ULCER, POLYPS, DIVERTICULITIS., DIET CONTROLLED DIABETES. History of Any Multi-Drug Resistant Organisms: None Reported Past Surgical History: Tubal Ligation Additional Past Surgical History / Comment(s): cataracts Past Anesthesia/Blood Transfusion Reactions: No Reported Reaction Past Psychological History: No Psychological Hx Reported Smoking Status: Current every day smoker Past Alcohol Use History: Occasional Past Drug Use History: None Reported - Past Family History Mother Family Medical History: No Reported History Additional Family Medical History / Comment(s): Mother of dementia at the age of 72 or 73 yrs. Father Family Medical History: Myocardial Infarction ([place]) Additional Family Medical History / Comment(s): Pt was estranged from her father but knows he had a [place] and a CVA and he is . General Exam Limitations: no limitations General appearance: alert, in no apparent distress Head exam: Present: atraumatic, normocephalic, normal inspection Eye exam: Present: normal appearance, PERRL, EOMI. Absent: scleral icterus, conjunctival injection, periorbital swelling ENT exam: Present: mucous membranes moist. Absent: normal exam, normal oropharynx (Angioedema primarily on the right side of the tongue) Neck exam: Present: normal inspection, full ROM. Absent: tenderness, meningismus, lymphadenopathy Respiratory exam: Present: normal lung sounds bilaterally. Absent: respiratory distress, wheezes, rales, rhonchi, stridor Cardiovascular Exam: Present: regular rate, normal rhythm, normal heart sounds. Absent: systolic murmur, diastolic murmur, rubs, gallop, clicks Neurological exam: Present: alert Skin exam: Present: warm, dry, intact, normal color. Absent: rash Course Vital Signs 07/17/21 05:47 Temperature 98.3 F Pulse Rate 83 Respiratory 22 Rate Blood Pressure 139/83 O2 Sat by Pulse 96 Oximetry Medical Decision Making - Medical Decision Making 61-year-old female presented for tongue swelling. Patient does have noted right sided tongue angioedema. Patient was given Solu-Medrol Pepcid Benadryl states that she does feel improved she does have some mild swelling still noted. Patient has some symptoms with in her throat which are now resolved she states that these are to talk has no difficulty swallowing. 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 She states that she prefers to be discharged to go to work and that she will come immediately back to emergency department if symptoms worsen. She does understand the risk of leaving. Patient was also given TXA Disposition Clinical Impression: Angioedema Disposition: HOME SELF-CARE Condition: Stable Instructions (If sedation given, give patient instructions): Angioedema (ED) Additional Instructions: Please discuss with her PCP regarding your lisinopril.Please return to the Emergency Department if symptoms worsen or any other concerns. Prescriptions: predniSONE 50 mg PO DAILY #3 tab Is patient prescribed a controlled substance at d/c from ED?: No Referrals: Katelyn Silevrman NPC [Primary Care Provider] - 1-2 days Time of Disposition: 08:40
[2021-07-17] MEDS ORDERED: TRANEXAMIC ACID 1,000 MG in SODIUM CHLORIDE 0.9% 100 ML IVPB ONE (07:30)
== END 2021-07-17 08:50 | disposition home or self-care (01) ==
LOC: EC 05:45
DX: T78.3XXA Angioneurotic edema, initial encounter (principal); E11.36 Type 2 diabetes mellitus with diabetic cataract; I10 Essential (primary) hypertension; F17.200 Nicotine dependence, unspecified, uncomplicated; Z98.51 Tubal ligation status; Z87.11 Personal history of peptic ulcer disease
CPT/HCPCS: 99283; 96374; 96375 ×3; J1200; J2930

== ENCOUNTER → 2021-08-21 | Outpatient (CLI) | payer MEDICAID ==
--- NOTE | 2021-08-22 07:33 | XR ---
EXAMINATION TYPE: XR shoulder complete RT DATE OF EXAM: 08/21/2021 COMPARISON: NONE HISTORY: Pain TECHNIQUE: Shoulder examined in 3 projections FINDINGS: The humeral head articulates with the glenoid. No acute fractures or dislocations are evident. On the axillary Y view there is elevation of the acromion in relation to the distal clavicle which is a change from the additional images. Acromioclavicular junction separation could be considered. A follow up study can be performed 7-10 days from acute trauma for continued pain. IMPRESSION: 1. No acute fractures evident. 2. There may be acromioclavicular joint separation present. Correlate with symptoms. Study without wi th weights could be performed for confirmation.
== END | disposition home or self-care (01) ==
LOC: RADXRMAIN 15:47
PROVIDERS: ATTEND Nurse Practitioner Adult Health
DX: M25.511 Pain in right shoulder (principal)

== ENCOUNTER → 2021-09-04 | Outpatient (CLI) | payer MEDICAID ==
--- NOTE | 2021-09-04 16:24 | FL ---
EXAMINATION TYPE: FL arthrogram shoulder RT DATE OF EXAM: 09/04/2021 CLINICAL HISTORY: Right shoulder pain. TECHNIQUE: Fluoroscopic guidance was provided during right shoulder arthrogram procedure performed by myself. A total of 62 seconds of fluoroscopic time was utilized during the procedure and two spot i mages are acquired. COMPARISON: Right shoulder x-rays August 21, 2021. FINDINGS: Procedure for arthrogram explained to patient. Benefits, alternatives, and risks were disc ussed. Overlying skin was cleansed with Betadine. Lidocaine was used as anesthetic into the skin and deeper tissue. Under fluoroscopic guidance, a 22-gauge spinal needle was advanced into the glenohumeral join t space. Approximately 12 cc of a solution 50% 0.1 cc gadolinium diluted in sterile saline and 50% Is ovue 200 M was injected. Picture saved confirming satisfactory joint space injection. There is redemonstration of moderate to severe inferior glenohumeral joint space narrowing. At this point needle is withdrawn. Patient tolerated procedure well without any immediate complicatio n. Patient was taken to MRI for subsequent study. This report will be dictated separately. Patient left the hospital after attempted MRI in stable and satisfactory condition. IMPRESSION: Successful fluoroscopic assisted arthrogram for subsequent MRI study.
== END | disposition home or self-care (01) ==
LOC: RADFLMAIN 12:45
PROVIDERS: ATTEND Internal Medicine
DX: M25.511 Pain in right shoulder (principal)
CPT/HCPCS: 23350; 73040; J2001; Q9966

== ENCOUNTER → 2021-11-21 | Outpatient (CLI) | payer MEDICAID ==
--- NOTE | 2021-11-21 11:35 | XR ---
Left ankle and left foot HISTORY: Leg swelling 3 views the left ankle, 3 views the left foot There is a plantar calcaneal spur. Soft tissue swelling is present. Bone mineralization, joint spaces and alignment are maintained. No fracture or dislocation. Degenerative change present at the first m etatarsophalangeal joint. IMPRESSION: Osteoarthritis. Soft tissue swelling and plantar calcaneal spur.
== END | disposition home or self-care (01) ==
LOC: RADXRMAIN 10:11
PROVIDERS: ATTEND Internal Medicine
DX: M19.072 Primary osteoarthritis, left ankle and foot (principal); M77.32 Calcaneal spur, left foot

== ENCOUNTER → 2021-11-21 | Outpatient (CLI) | payer MEDICAID ==
--- NOTE | 2021-11-21 11:18 | US ---
EXAMINATION TYPE: US venous doppler duplex LE LT DATE OF EXAM: 11/21/2021 10:03 AM COMPARISON: NONE CLINICAL HISTORY: M79.81 Hematoma soft tissue. Left ankle pain and swelling for 4 days. SIDE PERFORMED: Left TECHNIQUE: The lower extremity deep venous system is examined utilizing real time linear array sonog sri with graded compression, doppler sonography and color-flow sonography. VESSELS IMAGED: Common Femoral Vein Deep Femoral Vein Greater Saphenous Vein * Femoral Vein Popliteal Vein Small Saphenous Vein * Proximal Calf Veins (* superficial vessels) There is normal flow, compressibility, vascular waveforms Left Leg: Negative for DVT IMPRESSION: No evident deep venous thrombosis within the left lower extremity from the level of the k nee centrally
== END | disposition home or self-care (01) ==
LOC: RADUSWWP 09:35
PROVIDERS: ATTEND Internal Medicine
DX: M79.81 Nontraumatic hematoma of soft tissue (principal)

== ENCOUNTER → 2021-11-29 | Outpatient (CLI) | payer MEDICAID | END | disposition home or self-care (01) | LOC: LABWHC1 15:45 | PROVIDERS: ATTEND Internal Medicine | DX: M79.89 Other specified soft tissue disorders (principal) | CPT/HCPCS: 36415; 83970 ==

== ENCOUNTER → 2021-12-01 | Outpatient (CLI) | payer MEDICAID ==
[~2021-12-01] MED LIST changes: -LACTATED RINGERS 1,000 ML IV ONE; -LACTATED RINGERS 1,000 ML IV SCH; -LIDOCAINE 1% INJ 10MG/ML (20 ML MDV) ONE; -PROPOFOL 10 MG/ML 20 ML VIAL IV ONE; +SODIUM CHLORIDE 0.9% 500 ML 500 ML in EMPTY BAG 1 BAG IV PRN
[2021-12-01] MEDS: MAGNESIUM SULFATE-D5W PMX 1 GM in DEXTROSE/WATER 1 100ML.BAG IVPB NR ×4 (10:25→12:01)
[2021-12-01 10:36] VITALS: BP 137/85; PULSE 65; RESP 16; TEMP 97.9
== END ==
LOC: PROCWHC3 10:31
PROVIDERS: ATTEND Internal Medicine
DX: E83.42 Hypomagnesemia (principal); F17.200 Nicotine dependence, unspecified, uncomplicated; Z88.8 Allergy status to other drugs, medicaments and biological substances
CPT/HCPCS: 96365; 96366; J3475

== ENCOUNTER 2022-01-23 16:05 | Outpatient (CLI) | payer MEDICAID | END 2022-01-23 16:52 | disposition home or self-care (01) | LOC: LABWHC1 16:05 | PROVIDERS: ATTEND Internal Medicine | DX: Z53.9 Procedure and treatment not carried out, unspecified reason (principal) ==

== ENCOUNTER → 2022-01-24 | Outpatient (CLI) | payer MEDICAID ==
[2022-01-24 08:26] LABS: Ionized Calcium 5.3 mg/dL (4.5-5.3)
[2022-01-24 08:46] LABS: ALT 76 U/L (4-34); AST 27 U/L (14-36); African American GFR (CKD) 57 (>60 ml/min/1.73 sqM); Albumin 3.8 g/dL (3.5-5.0); Albumin/Globulin Ratio 0.9; Alkaline Phosphatase 227 U/L (38-126); Anion Gap 8 mmol/L; Blood Urea Nitrogen 24 mg/dL (7-17); Calcium 10.4 mg/dL (8.4-10.2); Carbon Dioxide 31 mmol/L (22-30); Chloride 98 mmol/L (98-107); Globulin 4.1 g/dL; Glucose 110 mg/dL (74-99); Magnesium 1.6 mg/dL (1.6-2.3); Non-African American GFR(CKD) 50 (>60 ml/min/1.73 sqM); Potassium 4.8 mmol/L (3.5-5.1); Sodium 137 mmol/L (137-145); Total Bilirubin 0.5 mg/dL (0.2-1.3); Total Protein 7.9 g/dL (6.3-8.2); Uric Acid 6.4 mg/dL (3.7-7.4)
[2022-01-24 11:12] LABS: Basophils # (A) 0.03 X 10*3/uL (0.00-0.10); Basophils % (A) 0.3 %; Eosinophils # (A) 0.01 X 10*3/uL (0.04-0.35); Eosinophils % (A) 0.1 %; HCT 39.6 % (37.2-46.3); HGB 12.8 g/dL (12.0-15.0); Immature Grans, Automated 0.4 %; Lymphocytes # (A) 2.05 X 10*3/uL (0.90-5.00); Lymphocytes % (A) 17.6 %; MCH 30.3 pg (27.0-32.0); MCHC 32.3 g/dL (32.0-37.0); MCV 93.6 fL (80.0-97.0); Mean Platelet Volume 10.1 fL (9.5-12.2); Monocytes # (A) 0.66 X 10*3/uL (0.20-1.00); Monocytes % (A) 5.7 %; NRBC Per 100 WBC 0 /100 WBCS (0.0-0.0); Neutrophils # (A) 8.86 X 10*3/uL (1.80-7.70); Neutrophils % (A) 75.9 %; Platelet Count 612 X 10*3/uL (140-440); RBC 4.23 X 10*6/uL (4.10-5.20); RDW 14.1 % (11.5-14.5); WBC 11.66 X 10*3/uL (4.50-10.00)
[2022-01-24 14:27] LABS: Chol/HDL Ratio 4.76 Ratio; LDL Cholesterol,Calculated 142.7 mg/dL (0.0-131.0); Rheumatoid Factor, Qnt <10 IU/mL (0-15)
[2022-01-24 15:33] LABS: Erythrocyte Sedimentation Rate 100 mm/Hr (0-30)
[2022-01-24 16:02] LABS: Centromere Antibody <0.2 AI; Centromere Antibody Interp NEGATIVE (NEGATIVE); Cyclic Citrull Pep IgG Unit 1.1 U/mL; Cyclic Citrullinated Pep IgG NEGATIVE (NEGATIVE)
== END | disposition home or self-care (01) ==
LOC: LABWHC1 07:26
PROVIDERS: ATTEND Internal Medicine
DX: E83.42 Hypomagnesemia (principal); M79.671 Pain in right foot
CPT/HCPCS: 36415; 80053; 80061; 82330; 83735; 84550; 85025; 85652; 86038; 86200; 86431

== ENCOUNTER → 2022-02-12 | Outpatient (CLI) | payer MEDICAID ==
[2022-02-12 11:36] LABS: Ionized Calcium 5.5 mg/dL (4.5-5.3)
[2022-02-12 11:39] LABS: Basophils # (A) 0.1 k/uL (0-0.2); Basophils % (A) 1 %; Eosinophils # (A) 0.2 k/uL (0-0.7); Eosinophils % (A) 2 %; HCT 44.5 % (34.0-46.0); HGB 14.1 gm/dL (11.4-16.0); Lymphocytes # (A) 2.3 k/uL (1.0-4.8); Lymphocytes % (A) 25 %; MCH 31.5 pg (25.0-35.0); MCHC 31.7 g/dL (31.0-37.0); MCV 99.4 fL (80.0-100.0); Macrocytosis Slight; Mean Platelet Volume 7.7; Monocytes # (A) 0.4 k/uL (0-1.0); Monocytes % (A) 5 %; Neutrophils % (A) 65 %; Platelet Count 335 k/uL (150-450); RBC 4.48 m/uL (3.80-5.40); RDW 14.7 % (11.5-15.5); WBC 9.2 k/uL (3.8-10.6)
[2022-02-12 12:42] LABS: Erythrocyte Sedimentation Rate 28 mm/hr (0-20)
[2022-02-12 13:08] LABS: RBC Morphology Normal
[2022-02-12 15:04] LABS: African American GFR (CKD) 42.5 (60.0-200.0); Albumin 4.2 g/dL (3.8-4.9); Albumin/Globulin Ratio 1.05 (1.60-3.17); Anion Gap 12.7 mmol/L (10.00-18.00); BUN/Creat Ratio 15.2 Ratio (12.00-20.00); Blood Urea Nitrogen 22.8 mg/dL (9.0-27.0); Carbon Dioxide 23.3 mmol/L (20.0-27.5); Magnesium 1.9 mg/dL (1.5-2.4); Non-African American GFR(CKD) 36.7 (60.0-200.0); Potassium 4.8 mmol/L (3.5-5.5); Total Bilirubin 0.3 mg/dL (0.30-1.20); Total Protein 8.2 g/dL (6.2-8.2)
== END | disposition home or self-care (01) ==
LOC: LABWHC1 10:29
PROVIDERS: ATTEND Internal Medicine
DX: I10 Essential (primary) hypertension (principal); N17.9 Acute kidney failure, unspecified
CPT/HCPCS: 36415; 80053; 82330; 83735; 85025; 85652

== ENCOUNTER → 2022-04-20 | Outpatient (CLI) | payer MEDICAID ==
--- NOTE | 2022-04-21 13:00 | BD ---
EXAMINATION TYPE: Axial Bone Density DATE OF EXAM: 04/20/2022 COMPARISON: Prior DEXA bone scan 2015 CLINICAL HISTORY: 61 years year old Female. ICD-10 CODE: Z13.820 Encounter for osteoporosis angiein chasidy in asympt Z78.0 Height: 5 FT 1 IN Weight: 212 FRAX RISK QUESTIONS: Alcohol (3 or more units per day): NO Family History (Parent hip fracture): NO Glucocorticoids (More than 3mos): NO (Ex: prednisone, prednisolone, methylprednisolone, dexamethasone, and hydrocortisone). History of Fracture in Adulthood: NO Secondary Osteoporosis: 1. Type 1 Diabetes: NO 2. Hyperthyroidism: NO 3. Menopause before 45: NO 4. Malnutrition: NO 5. Chronic liver disease: NO Rheumatoid Arthritis: NO Current Tobacco Use: YES RISK FACTORS HISTORY OF: Surgery to Spine/Hip(right/left)/Wrist (right/left): NO Family History of Osteoporosis: NO Active: NO Diet low in dairy products/other sources of calcium: NO Postmenopausal woman: YES Take estrogen and/or progesterone medications: NO Lost more than 2 inches in height since high school: YES Frequent falls: NO Poor Health: GOOD Hyperparathyroidism: NO Adrenal Insufficiency: NO MEDICATIONS: Additional Medications: METOPROLOL,CHOLESTEROL MEDS, PRILOSEC, H2O PILL , AMLODIPINE, MAGNESIUM, Additional History: EXAM MEASUREMENTS: Bone mineral densitometry was performed using the [employer] System. Bone mineral density as measured about the Lumbar spine is: ----- L1-L4(G/cm2): 1.102 T Score Values are as follows: ----- L1: -1.5 ----- L2: -1.1 ----- L3: -0.2 ----- L4: -0.2 ----- L1-L4: -0.6 Bone mineral density has: INCREASED 2.4 % since study of: 2016 Bone mineral density about the R hip (g/cm2): 0.810 Bone mineral density about the L hip (g/cm2): 0.815 T Score values are as follows: -----R Neck: -1.6 -----L Neck: -1.6 -----R Total: -0.5 -----L Total: -0.9 Bone mineral density has: DECREASED -10.1 % since study of: 2016 FRAX%s: The graph provided illustrates a 8.1 % chance for a major osteoporotic fx and a 0.8 % chance for the hips probability for fx in 10 years time. IMPRESSION: Osteopenia (T Score between -2.5 and -1). There is slightly increased risk of fracture and the patient may be considered for treatment. Re-Screen 2-5 years. NOTE: T-SCORE=SD OF THE YOUNG ADULT MEAN.
--- NOTE | 2022-04-23 19:18 | MM ---
Reason for Exam: Screening (asymptomatic). Last mammogram was performed 3 year(s) and 5 month(s) ago. Patient History: Menarche at age 11. First Full-Term at age 18. Postmenopausal. Risk Values: Lala 5 year model risk: 1.4%. NCI Lifetime model risk: 6.0%. Film Views: Bilateral CC views were taken. Bilateral MLO views were taken. Prior Study Comparison: 07/09/2013 Bilateral Screening Mammogram, [facility]. 11/28/2018 Bilateral Screening Mammogram, [facility]. Tissue Density: There are scattered fibroglandular densities. Findings: Analyzed By CAD. Chronic nodularity left breast. No significant change from prior exams. Overall Assessment: Benign, BI-RAD 2 Management: Screening Mammogram of both breasts in 1 year. A clinical breast exam by your physician is recommended on an annual basis and results should be correlated with mammographic findings. Also, the patient should continue monthly self breast exams. Electronically signed and approved by: Genia Washington M.D. Radiologist
== END | disposition home or self-care (01) ==
LOC: RADBDWWP 15:33
PROVIDERS: ATTEND Internal Medicine
DX: Z12.31 Encounter for screening mammogram for malignant neoplasm of breast (principal); M85.89 Other specified disorders of bone density and structure, multiple sites; Z78.0 Asymptomatic menopausal state
CPT/HCPCS: 77063; 77067; 77080

== ENCOUNTER 2022-04-23 06:50 | Day surgery (SDC) | payer MEDICAID ==
[2022-04-20 10:36] VITALS: BMI 38.9
[~2022-04-23 06:50] MED LIST changes: +LACTATED RINGERS 1,000 ML IV SCH; +LIDOCAINE 1% (10MG/ML) FOR IV START INTRADERMA PRN; -SODIUM CHLORIDE 0.9% 500 ML 500 ML in EMPTY BAG 1 BAG IV PRN
--- NOTE | 2022-04-23 07:00 | P.GSHP ---
History of Present Illness H&P Date: 04/23/22 CHIEF COMPLAINT: GERD and colon screen HISTORY OF PRESENT ILLNESS: The patient is a 61-year-old female who presents with gastroesophageal reflux disease and need for colon screen. Upper and lower endoscopy were offered for further evaluation and management. PAST MEDICAL HISTORY: Please see list. PAST SURGICAL HISTORY: Please see list. MEDICATIONS: Please see list. ALLERGIES: Please see list. SOCIAL HISTORY: No illicit drug use FAMILY HISTORY: No reports of Crohn disease or ulcerative colitis. REVIEW OF ORGAN SYSTEMS: CONSTITUTIONAL: No reports of fevers or chills. GI: Denies any blood in stools or constipation. PHYSICAL EXAM: VITAL SIGNS: Stable GENERAL: Well-developed pleasant in no acute distress. HEENT: No scleral icterus. Extraocular movements grossly intact. Moist buccal mucosa. NECK: Supple without lymphadenopathy. CHEST: Unlabored respirations. Equal bilateral excursions. CARDIOVASCULAR: Regular rate and rhythm. Distal 2+ pulses. ABDOMEN: Soft, nondistended. MUSCULOSKELETAL: No clubbing, cyanosis, or edema. ASSESSMENT: 1. Gastroesophageal reflux disease 2. Colon screen. PLAN: 1. Recommend proceeding with an upper and lower endoscopy Past Medical History Past Medical History: GERD/Reflux, GI Bleed, Hyperlipidemia, Hypertension Additional Past Medical History / Comment(s): gastric ulcer, fontaine's esophagus, gastritis, hiatal hernia, benign colon polyps, diverticular disease. History of Any Multi-Drug Resistant Organisms: None Reported Past Surgical History: Tubal Ligation Additional Past Surgical History / Comment(s): EGDs, colonoscopies, bilateral eyebrow lifts, BILATERAL CATARACT SURGERY Past Anesthesia/Blood Transfusion Reactions: No Reported Reaction Additional Past Anesthesia/Blood Transfusion Reaction / Comment(s): Clausterphobia Smoking Status: Current every day smoker - Past Family History Mother Family Medical History: Dementia Additional Family Medical History / Comment(s): Mother of dementia at the age of 72 or 73 yrs. Father Family Medical History: CVA/TIA, Myocardial Infarction ([place]) Additional Family Medical History / Comment(s): Pt was estranged from her father but knows he had a [place] and a CVA and he is . sister Additional Family Medical History / Comment(s): hyperthyroidism in 1 and low thyroid in another. Medications and Allergies Home Medications Medication Instructions Recorded Confirmed Type Atorvastatin [Lipitor] 40 mg PO HS 05/13/14 04/20/22 History Metoprolol Succinate (ER) [Toprol 100 mg PO DAILY 07/17/21 04/20/22 History XL] amLODIPine [Norvasc] 5 mg PO BID 07/17/21 04/20/22 History buPROPion HCL [Wellbutrin XL] 300 mg PO DAILY 07/17/21 04/20/22 History Famotidine [Pepcid] 20 mg PO DAILY #30 tab 01/20/22 04/20/22 Rx Magnesium Oxide [Mag-Ox] 400 mg PO DAILY 04/20/22 04/20/22 History Spironolactone [Aldactone] 25 mg PO DAILY 04/20/22 04/20/22 History Allergies Allergy/AdvReac Type Severity Reaction Status Date / Time lisinopril Allergy Anaphylaxis Verified 04/20/22 10:03
[2022-04-23 07:28] VITALS: TEMP 96.4
[2022-04-23] MEDS ORDERED: LIDOCAINE 2% INJ 20 MG/ML (2 ML VIAL) ONE (07:55)
[2022-04-23] MEDS ORDERED: PROPOFOL 10 MG/ML 20 ML VIAL IV ONE (07:55)
--- NOTE | 2022-04-23 08:08 | P.PCN ---
Date of Procedure: 04/23/22 Description of Procedure: PREOPERATIVE DIAGNOSIS: Gastroesophageal reflux disease. Morbid obesity. POSTOPERATIVE DIAGNOSIS: Gastroesophageal reflux disease. Morbid obesity. Gastritis with bleeding Gastric ulcers Diaphragmatic hiatal hernia OPERATION: Esophagogastroduodenoscopy with biopsies along antrum and duodenum SURGEON: Jaqueline Stringer MD ANESTHESIA: MAC. INDICATIONS: The patient is a 61-year-old female who presents with reflux disease. Benefits and risks of the procedure were described. Informed consent was obtained. DESCRIPTION: The patient was brought into the endoscopy suite and laid in the left lateral decubitus position. An Olympus gastroscope was passed along the posterior orop harynx down to the distal esophagus where the squamocolumnar junction was encountered at 39 cm from the incisors. The stomach was entered and no bile reflux was found. Additional findings are listed below. Biopsies with cold forceps were obtained of the antrum. The first through third portion of the duodenum was examined. Retroflexion of the scope confirmed Hill grade 2 lower esophageal valve. The squamocolumnar junction demonstrated LA grade B erosive esophagitis. The stomach was desufflated. The patient tolerated the procedure well. FINDINGS: Squamocolumnar junction 39 cm from the incisors. Diaphragmatic hiatus at 40 cm. Hiatal hernia, 1 cm Hill grade 2 lower esophageal valve. LA grade B erosive esophagitis. Cold biopsies obtained of duodenum for celiac disease Chronic gastritis with recent bleed Superficial punctate gastric ulcer gastric cardia with bleeding RECOMMENDATIONS: 1. Carafate 1 g 3 times daily 2. Omeprazole 40 mg daily Plan - Discharge Summary Discharge Rx Participant: Yes New Discharge Prescriptions: No Action Atorvastatin [Lipitor] 40 mg PO HS amLODIPine [Norvasc] 5 mg PO BID buPROPion HCL [Wellbutrin XL] 300 mg PO DAILY Metoprolol Succinate (ER) [Toprol XL] 100 mg PO DAILY Famotidine [Pepcid] 20 mg PO DAILY #30 tab Spironolactone [Aldactone] 25 mg PO DAILY Magnesium Oxide [Mag-Ox] 400 mg PO DAILY Discharge Medication List Atorvastatin [Lipitor] 40 mg PO HS 05/13/14 [History] Metoprolol Succinate (ER) [Toprol XL] 100 mg PO DAILY 07/17/21 [History] amLODIPine [Norvasc] 5 mg PO BID 07/17/21 [History] buPROPion HCL [Wellbutrin XL] 300 mg PO DAILY 07/17/21 [History] Famotidine [Pepcid] 20 mg PO DAILY #30 tab 01/20/22 [Rx] Magnesium Oxide [Mag-Ox] 400 mg PO DAILY 04/20/22 [History] Spironolactone [Aldactone] 25 mg PO DAILY 04/20/22 [History]
[2022-04-23 08:29] VITALS: RESP 16
--- NOTE | 2022-04-23 08:30 | P.PCN ---
Date of Procedure: 04/23/22 Description of Procedure: PREOPERATIVE DIAGNOSIS: Personal history of colon polyps Family history colon polyps Colonoscopy screening POSTOPERATIVE DIAGNOSIS: Tubular adenoma ascending colon Sigmoid diverticulosis OPERATION: Colonoscopy to the ileocecal valve and cecum Colonoscopy with cold forceps biopsy SURGEON: Jaqueline Stringer MD. ANESTHESIA: MAC. INDICATIONS: The patient is an 61-year-old female who presents family history of colon polyps and personal history of colon polyps. Last colonoscopy 5 years. Benefits and risks were described and informed consent was obtained. DESCRIPTION OF PROCEDURE: The patient had undergone Sutab prep. The patient had been brought into the operating room and laid in the left lateral decubitus position. After adequate intravenous sedation, the rectum was examined with 2% lidocaine jelly. The prostate was unremarkable. External hemorrhoids were encountered. The rectal tone was within normal limits. No lesions were palpated in the rectal vault. An Olympus colonoscope was advanced until the cecum, ileocecal valve and appendiceal orifice were clearly viewed. The prep was fair. Sigmoid diverticulosis was encountered. Colonic polyps were found and removed. No evidence of focal colitis was found. Retroflexion of the scope demonstrated grade 1 internal hemorrhoids without active bleeding or inflammation. The colon was desufflated. The patient had tolerated the procedure well. Withdrawal time was over 6 minutes. FINDINGS: Aronchick preparation quality scale 2+ (1-5) Internal hemorrhoids, grade 1 No external hemorrhoids No arteriovenous malformations. Sigmoid diverticulosis Removal of 1 polyp: - Cold forceps biopsy at ascending colon, 5 mm polyp, piecemeal resection No focal colitis. RECOMMENDATIONS: Repeat colonoscopy in one year, 2022 due to inadequate prep and piecemeal resection ascending colon polyp Plan - Discharge Summary Discharge Rx Participant: Yes New Discharge Prescriptions: New Sucralfate [Carafate] 1 gm PO TID #30 tablet Omeprazole [PriLOSEC] 40 mg PO DAILY #30 cap Continue Atorvastatin [Lipitor] 40 mg PO HS amLODIPine [Norvasc] 5 mg PO BID buPROPion HCL [Wellbutrin XL] 300 mg PO DAILY Metoprolol Succinate (ER) [Toprol XL] 100 mg PO DAILY Spironolactone [Aldactone] 25 mg PO DAILY Magnesium Oxide [Mag-Ox] 400 mg PO DAILY Discontinued Famotidine [Pepcid] 20 mg PO DAILY #30 tab Discharge Medication List Atorvastatin [Lipitor] 40 mg PO HS 05/13/14 [History] Metoprolol Succinate (ER) [Toprol XL] 100 mg PO DAILY 07/17/21 [History] amLODIPine [Norvasc] 5 mg PO BID 07/17/21 [History] buPROPion HCL [Wellbutrin XL] 300 mg PO DAILY 07/17/21 [History] Magnesium Oxide [Mag-Ox] 400 mg PO DAILY 04/20/22 [History] Spironolactone [Aldactone] 25 mg PO DAILY 04/20/22 [History] Omeprazole [PriLOSEC] 40 mg PO DAILY #30 cap 04/23/22 [Rx] Sucralfate [Carafate] 1 gm PO TID #30 tablet 04/23/22 [Rx] Follow up Appointment(s)/Referral(s): Jaqueline Stringer MD [STAFF PHYSICIAN] - 05/08/22 Patient Instructions/Handouts: How to Stop Smoking (DC), Diverticulosis (DC), Colorectal Polyps (GEN), Diverticulosis Diet (GEN) Discharge Disposition: HOME SELF-CARE
[2022-04-23 08:55] VITALS: BP 145/79; PULSE 63
== END 2022-04-23 09:14 | disposition home or self-care (01) ==
LOC: ORWHC2ENDO 06:50
PROVIDERS: ATTEND Surgery Plastic and Reconstructive Surgery
DX: Z12.11 Encounter for screening for malignant neoplasm of colon (principal); K57.30 Diverticulosis of large intestine without perforation or abscess without bleeding; K31.9 Disease of stomach and duodenum, unspecified; K63.5 Polyp of colon; K22.11 Ulcer of esophagus with bleeding; K21.9 Gastro-esophageal reflux disease without esophagitis; K29.71 Gastritis, unspecified, with bleeding; K44.9 Diaphragmatic hernia without obstruction or gangrene; E66.01 Morbid (severe) obesity due to excess calories; Z68.37 Body mass index [BMI] 37.0-37.9, adult; F17.210 Nicotine dependence, cigarettes, uncomplicated; Z86.010 Personal history of colon polyps; Z83.71 Family history of colonic polyps; I10 Essential (primary) hypertension; E78.5 Hyperlipidemia, unspecified; Z98.51 Tubal ligation status; Z98.42 Cataract extraction status, left eye; Z98.41 Cataract extraction status, right eye; F40.240 Claustrophobia; Z82.3 Family history of stroke; Z82.49 Family history of ischemic heart disease and other diseases of the circulatory system; Z83.49 Family history of other endocrine, nutritional and metabolic diseases; Z79.899 Other long term (current) drug therapy; Z88.8 Allergy status to other drugs, medicaments and biological substances
CPT/HCPCS: 88305; 45380; 43239; J2704; J2001

== ENCOUNTER → 2022-05-23 | Outpatient (CLI) | payer MEDICAID ==
[2022-05-23 23:05] LABS: Basophils # (A) 0.08 X 10*3/uL (0.00-0.10); Eosinophils # (A) 0.37 X 10*3/uL (0.04-0.35); Eosinophils % (A) 4.8 %; HCT 41.5 % (37.2-46.3); HGB 13.3 g/dL (12.0-15.0); Immature Grans, Automated 0.1 %; Lymphocytes # (A) 2.38 X 10*3/uL (0.90-5.00); Lymphocytes % (A) 30.7 %; MCH 30.8 pg (27.0-32.0); MCV 96.1 fL (80.0-97.0); Mean Platelet Volume 10.8 fL (9.5-12.2); Monocytes # (A) 0.82 X 10*3/uL (0.20-1.00); Monocytes % (A) 10.6 %; NRBC Per 100 WBC 0 /100 WBCS (0.0-0.0); Neutrophils % (A) 52.8 %; Platelet Count 325 X 10*3/uL (140-440); RBC 4.32 X 10*6/uL (4.10-5.20); RDW 14.1 % (11.5-14.5); WBC 7.76 X 10*3/uL (4.50-10.00)
[2022-05-23 23:13] LABS: African American GFR (CKD) 48.7 (60.0-200.0); Albumin/Globulin Ratio 1.07 (1.60-3.17); Anion Gap 8.2 mmol/L (10.00-18.00); BUN/Creat Ratio 16.87 Ratio (12.00-20.00); Blood Urea Nitrogen 22.6 mg/dL (9.0-27.0); Calcium 9.6 mg/dL (8.7-10.3); Carbon Dioxide 26.3 mmol/L (20.0-27.5); Globulin 3.7 g/dL (1.6-3.3); Non-African American GFR(CKD) 42.1 (60.0-200.0); Potassium 4.4 mmol/L (3.5-5.5); Total Bilirubin 0.2 mg/dL (0.30-1.20); Total Protein 7.7 g/dL (6.2-8.2)
== END | disposition home or self-care (01) ==
LOC: LABWHC1 15:43
PROVIDERS: ATTEND Internal Medicine
DX: Z00.00 Encounter for general adult medical examination without abnormal findings (principal); N17.9 Acute kidney failure, unspecified
CPT/HCPCS: 36415; 80053; 83735; 83970; 85025

== ENCOUNTER → 2023-04-16 | Outpatient (CLI) | payer MEDICAID ==
[2023-04-16 14:16] LABS: Basophils # (A) 0.05 X 10*3/uL (0.00-0.10); Basophils % (A) 0.6 %; Eosinophils # (A) 0.21 X 10*3/uL (0.04-0.35); Eosinophils % (A) 2.7 %; HGB 14.5 g/dL (12.0-15.0); Immature Grans, Automated 0.4 %; Lymphocytes # (A) 2.27 X 10*3/uL (0.90-5.00); Lymphocytes % (A) 29.4 %; MCHC 31.5 g/dL (32.0-37.0); MCV 98.3 fL (80.0-97.0); Mean Platelet Volume 10.6 fL (9.5-12.2); Monocytes # (A) 0.73 X 10*3/uL (0.20-1.00); Monocytes % (A) 9.5 %; NRBC Per 100 WBC 0 /100 WBCS (0.0-0.0); Neutrophils # (A) 4.42 X 10*3/uL (1.80-7.70); Neutrophils % (A) 57.4 %; Platelet Count 419 X 10*3/uL (140-440); RBC 4.68 X 10*6/uL (4.10-5.20); RDW 14.4 % (11.5-14.5); WBC 7.71 X 10*3/uL (4.50-10.00)
[2023-04-16 14:29] LABS: ALT 32 U/L (8-44); AST 25 U/L (13-35); African American GFR (CKD) 55.9 (60.0-200.0); Albumin 4.1 g/dL (3.8-4.9); Albumin/Globulin Ratio 1.17 (1.60-3.17); Alkaline Phosphatase 160 U/L (41-126); BUN/Creat Ratio 20.17 Ratio (12.00-20.00); Carbon Dioxide 26.5 mmol/L (20.0-27.5); Chloride 100 mmol/L (96-109); Chol/HDL Ratio 3.16 Ratio; Globulin 3.5 g/dL (1.6-3.3); Glucose 105 mg/dL (70-110); LDL Cholesterol,Calculated 101.5 mg/dL (0.0-131.0); Non-African American GFR(CKD) 48.2 (60.0-200.0); Potassium 5.8 mmol/L (3.5-5.5); Sodium 139 mmol/L (135-145); Total Protein 7.6 g/dL (6.2-8.2)
== END | disposition home or self-care (01) ==
LOC: LABWHC1 07:18
PROVIDERS: ATTEND Internal Medicine
DX: I10 Essential (primary) hypertension (principal); M85.80 Other specified disorders of bone density and structure, unspecified site; R74.8 Abnormal levels of other serum enzymes
CPT/HCPCS: 36415; 80053; 80061; 82306; 83735; 83970; 84100; 84443; 85025

== ENCOUNTER → 2024-08-17 | Outpatient (CLI) | payer MEDICAID ==
--- NOTE | 2024-08-17 10:39 | US ---
EXAMINATION TYPE: US venous doppler duplex LE LT DATE OF EXAM: 08/17/2024 10:07 AM COMPARISON: NONE CLINICAL INDICATION: Female, 64 years old with history of M25.572 PAIN IN LEFT ANKLE AND JOINTS OF LE FT FOOT; Pain in lower leg for 1 month. SIDE PERFORMED: Left TECHNIQUE: The lower extremity deep venous system is examined utilizing real time linear array sonog sir with graded compression, doppler sonography and color-flow sonography. VESSELS IMAGED: Popliteal Vein Small Saphenous Vein * Proximal Calf Veins (* superficial vessels) Pt refused to take pants off for exam. Exam severely limited. Left Leg: No evidence for DVT in vessels visualized. Posterior tibial vein and popliteal vein on the left were imaged. IMPRESSION: 1. Extremely limited to nondiagnostic examination. 2. Visualized vascular structures without evidence of deep venous thrombosis left lower extremity [facility], , 08/17/2024 10:37 AM
== END | disposition home or self-care (01) ==
LOC: RADUSWWP 10:05
PROVIDERS: ATTEND Orthopaedic Surgery
DX: M25.572 Pain in left ankle and joints of left foot

== ENCOUNTER → 2025-06-09 | Outpatient (CLI) | payer MEDICAID ==
[2025-06-09 15:18] LABS: Basophils # (A) 0.06 X 10*3/uL (0.00-0.10); Basophils % (A) 0.7 %; Eosinophils # (A) 0.20 X 10*3/uL (0.04-0.35); Eosinophils % (A) 2.2 %; HCT 47.3 % (37.2-46.3); HGB 15.1 g/dL (12.0-15.0); Immature Grans, Automated 0.20 %; Lymphocytes # (A) 2.08 X 10*3/uL (0.90-5.00); Lymphocytes % (A) 22.6 %; MCH 31.1 pg (27.0-32.0); MCHC 31.9 g/dL (32.0-37.0); MCV 97.5 FL (80.0-97.0); Monocytes # (A) 0.74 X 10*3/uL (0.20-1.00); Monocytes % (A) 8.1 %; NRBC Per 100 WBC 0 X 10*3/uL (0.00-0.01); Neutrophils # (A) 6.09 X 10*3/uL (1.80-7.70); Neutrophils % (A) 66.2 %; Platelet Count 301 X 10*3/uL (140-440); RBC 4.85 X 10*6/uL (4.10-5.20); RDW 14.2 % (11.5-14.5); WBC 9.19 X 10*3/uL (4.50-10.00)
[2025-06-09 15:49] LABS: Anion Gap 11.90 mmol/L (4.00-12.00); BUN/Creat Ratio 19.45 Ratio (12.00-20.00); Blood Urea Nitrogen 21.4 mg/dL (9.0-27.0); Carbon Dioxide 20.1 mmol/L (21.6-31.8); Chloride 106 mmol/L (96-109); Cholesterol 170.00 mg/dL (0.00-200.00); Glucose 89 mg/dL (70-110); HDL Cholesterol 58.00 mg/dL (40.00-60.00); LDL Cholesterol,Calculated 87.4 mg/dL (0.0-131.0); Magnesium 1.4 mg/dL (1.5-2.4); Potassium 5.1 mmol/L (3.5-5.5); Sodium 138 mmol/L (135-145); Triglycerides 123.00 mg/dL (0.00-149.00); VLDL Calculation 24.60 mg/dL (5.00-40.00)
[2025-06-09 15:50] LABS: ALT 24 U/L (8-44); AST 30 U/L (13-35); Albumin 4.1 g/dL (3.8-4.9); Albumin/Globulin Ratio 1.17 Ratio (1.60-3.17); Alkaline Phosphatase 139 U/L (41-126); Calcium 9.2 mg/dL (8.7-10.3); Globulin 3.5 g/dL (1.6-3.3); Total Protein 7.6 g/dL (6.2-8.2)
== END | disposition home or self-care (01) ==
LOC: LABWHC1 07:51
PROVIDERS: ATTEND Internal Medicine
DX: Z00.00 Encounter for general adult medical examination without abnormal findings (principal); E78.5 Hyperlipidemia, unspecified; E55.9 Vitamin D deficiency, unspecified
CPT/HCPCS: 36415; 80053; 80061; 82306; 83735; 84443; 85025